=== PATIENT | male | born 1955 | race Caucasian/White ===

== ENCOUNTER → 2018-10-07 | Outpatient (REF) | payer MEDICARE, BC ==
[~2018-10-07] MED LIST: ASP81; AUG875 PO; LOR5; OXYC1TAB54 GT; OXYC1TAB54 PO; PER PO; SIM10
[2018-10-07 10:27] LABS: PLATELET COUNT, AUTOMATED 277 K/uL (150-450)
== END ==
PROVIDERS: ATTEND Nurse Practitioner Family
DX: N39.0 Urinary tract infection, site not specified (principal)
CPT/HCPCS: 85025; G0103; 82040; 82247; 82310; 82374; 82435; 82565; 82947; 84075; 84132; 84153; 84155; 84295; 84450; 84460; 84520

== ENCOUNTER → 2018-10-11 | Outpatient (CLI) | payer MEDICARE, BC ==
[~2018-10-11] MED LIST changes: +NITR-105 PO; +TAMS0.4C25 PO
== END ==
LOC: LAB 09:21
PROVIDERS: ATTEND Urology
DX: N39.0 Urinary tract infection, site not specified (principal)
CPT/HCPCS: 81001

== ENCOUNTER → 2018-10-20 | Outpatient (CLI) | payer MEDICARE, BC ==
[~2018-10-20] MED LIST changes: +IOPAMIDOL 76% 150 ML INFUS BTL 150 ML ONE
--- NOTE | 2018-10-20 10:51 | RADIOLOGY IMAGING REPORT ---
FACILITY: [facility] PATIENT NAME: Alexander Wolfe : 1955 MR: [id number] V: [id number] EXAM DATE: ORDERING PHYSICIAN: TASNEEM SHERMAN TECHNOLOGIST: Location: [facility] [place] Patient: Alexander Wolfe : 1955 Visit/Account:[id number] Date of Sevice: 10/20/2018 CT ABDOMEN PELVIS W & W/O CONTRAST HISTORY: gross hematuria TECHNIQUE: Axial images acquired through the abdomen/pelvis both with and without IV contrast.. Delon nal and sagittal reformatting also performed.Dose Lowering Technique One of the following dose optimization techniques was utilized in the performance of this exam: Autom ated exposure control; adjustment of the mA and/or kV according to the patient's size; or use of an i terative reconstruction technique. Specific details can be referenced in the facility's radiology C T exam operational policy. CONTRAST: 75 mL Isovue-370 COMPARISON: None. FINDINGS: Visualized lung bases: There mild dependent changes in the lower lobes Hepatobiliary: There is cholelithiasis. Common bile duct is mildly prominent at 8 mm. There is add itional hyperdense material in the gallbladder fundus could represent sludge or small stones versus s mall mass Spleen: Negative. Adrenals: Negative. Pancreas: Negative. Kidneys ureters and bladder: There is no evidence of urolithiasis, hydronephrosis or hydroureter. Th ere is a 5 mm round hypoattenuating lesion in the upper pole of the right kidney which may represent a cyst although is too small to characterize by CT. The bladder is not ideally evaluated due to exte nsive streak artifacts the pelvis from bilateral hip arthroplasties . There appears be mild irregul ar thickening the anterior bladder wall. A 1.4 cm cystic structure projects just left of the bladder and may represent a diverticulum Genitalia: Coarse calcifications are identified within the prostate GI: There is diverticulosis throughout the left-sided colon although no CT evidence of acute diverti culitis. The appendix is visualized and does not appear inflamed. Vessels/spaces/nodes: There are minimal atherosclerotic calcifications in the abdominal aorta Bones/soft tissues: There are artifacts from bilateral hip arthroplasties. There are spondylotic henna nges in the thoracal lumbar spine and postsurgical changes at L3-4 from posterior lumbar interbody fu samantha Additional findings: None pertinent. IMPRESSION: Cholelithiasis with mild prominence of the common bile duct at 8 mm. There is additional hyperdense material within the gallbladder fundus which could represent sludge, stones versus small mass. This could be further evaluated with ultrasound No evidence of urolithiasis, hydronephrosis or hydroureter. 5. Nominal round hypoattenuating lesion upper pole the right kidney is too small to characterize by CT. The bladder is not ideally evaluated due to extensive streak artifacts from bilateral hip arthroplast ies. There appears to be mild irregular thickening of the anterior bladder wall. A 1.4 centers cyst ic structure projects just to the left of the bladder and may represent a diverticulum. Left-sided colonic diverticulosis although no CT evidence of acute diverticulitis Chronic changes as described Report Dictated By: Glory Anderson MD at 10/20/2018 10:34 AM Report E-Signed By: Glory Anderson MD at 10/20/2018 10:46 AM ZULMAN:AMICIVEdin
== END ==
LOC: CT 00:08
PROVIDERS: ATTEND Urology
DX: K80.20 Calculus of gallbladder without cholecystitis without obstruction (principal); Z96.643 Presence of artificial hip joint, bilateral; K57.30 Diverticulosis of large intestine without perforation or abscess without bleeding
CPT/HCPCS: 36415; 74178; 82565; Q9967

== ENCOUNTER 2018-10-27 02:21 | Day surgery (SDC) | payer MEDICARE, BC ==
[~2018-10-27] VITALS: Ht 188 cm; Wt 108.0 kg
[~2018-10-27 02:21] MED LIST changes: +FAMOTIDINE 20 MG TAB PO ONE; -IOPAMIDOL 76% 150 ML INFUS BTL 150 ML ONE
[2018-10-27] MEDS ORDERED: FAMOTIDINE 20 MG TAB ONE (06:03)
[2018-10-27] MEDS ORDERED: NORMOSOL R SOLN(*) 1000 ML BAG 1,000 ML IV PRN ×2 (06:05→06:45)
[2018-10-27] MEDS ORDERED: LEVOFLOXACIN/D5W*500 MG/100 ML 100 ML IVPB ONE (06:05)
[2018-10-27] MEDS ORDERED: mitoMYcin 20 MG VIAL 40 MG in WATER STERILE FOR INJ 50 ML VL 40 ML IR ONE (06:05)
[2018-10-27 06:25] VITALS: BP 145/97
[2018-10-27] MEDS ORDERED: LIDOCAINE/SOD BICARB 8.4% SYR ID ONE (06:45)
[2018-10-27] MEDS ORDERED: MIDAZOLAM 2 MG/2 ML VIAL IVP PRN (06:45)
[2018-10-27] MEDS ORDERED: fentaNYL CITR 100 MCG/2 ML AMP ONE ×3 (07:10→09:30)
[2018-10-27] MEDS ORDERED: KETAMINE HCL-NS 50 MG/5 ML SYR ONE (07:10)
[2018-10-27] MEDS ORDERED: PROPOFOL EMUL(*) 10MG/ML 20 ML 20 ML ONE (07:11)
[2018-10-27] MEDS ORDERED: LIDOCAINE MPF 1% 5 ML VIAL ONE (07:11)
[2018-10-27] MEDS ORDERED: DEXAMETHASONE SOD PHOS 10MG/ML ONE (07:11)
[2018-10-27] MEDS ORDERED: ONDANSETRON 4 MG/2 ML VIAL ONE (07:11)
[2018-10-27] MEDS ORDERED: BELLADONNA ALK/OPIUM 60MG SUPP PR ONE (08:15)
[2018-10-27 09:45] VITALS: BP 136/87
[2018-10-27 10:00] VITALS: BP 142/90
[2018-10-27 10:15] VITALS: BP 132/84
[2018-10-27] MEDS ORDERED: OXYBUTYNIN CHL XL 5 MG TABCR PO SCH (10:19)
--- NOTE | 2018-10-27 10:19 | Urology Discharge Summary ---
Discharge Summary Reason for Hosp/Final Diag: (1) Bladder tumor Status: Acute Departure Weight (Pounds): 238 Condition: Improved Discharge: Home Discharge Instructions Home Meds Discontinued Reported Medications Tamsulosin Hcl (FLOMAX) Unknown Strength Cap.er.24h, PO, CAP 10/11/18 Nitrofurantoin Monohyd/M-Cryst (MACROBID 100 MG CAPSULE) Unknown Strength Capsule, PO, CAPSULE 10/11/18 Aspirin (Childrens Chewable Aspirin) 81 Mg Chew 12/15/11 Simvastatin (Zocor) 10 Mg Tab 12/15/11 Special Instructions: Expect to have a frequent urge to urinate and perhaps see blood in the urine. You may actually get pain in your left side from the operation. Please call the office tomorrow to schedule an appointment for Wednesday to have the catheter removed. Call me for any problems or concerns [phone] Venous Thromboembolism Antithrombotics Is Pt On Any Antithrombotics?: No Prophylaxis Tx Contraindicated Pharmacological Contraindicati: Surgical Contraindication TASNEEM SHERMAN MD Oct 27, 2018 10:19
[2018-10-27 10:38] VITALS: BP 132/84
[2018-10-27] MEDS ORDERED: OXYB15TA14 PO (10:41)
[2018-10-27] MEDS ORDERED: OXYC-865 PO (10:41)
[2018-10-27 11:26] VITALS: BP 136/87
--- NOTE | 2018-10-27 13:18 | OPERATIVE REPORT 1 ---
EVENT DATE: October 27, 2018 SURGEON: Frederick Jimenez MD ANESTHESIOLOGIST: Xander Fong MD ANESTHESIA: well digger: None. PREOPERATIVE DIAGNOSIS Medium bladder tumor. POSTOPERATIVE DIAGNOSIS Medium bladder tumor. PROCEDURE PERFORMED Transurethral resection of medium bladder tumor, instillation of Mitomycin-C. DESCRIPTION OF PROCEDURE The patient was brought to the operating room and after the adequate induction of general anesthesia, he was placed in the relaxed dorsal lithotomy position. The genitalia were scrubbed, prepped and draped in the sterile fashion and the bladder examined with a rigid cystoscope. There was a small amount of clot in the dependent portion of the bladder that was irrigated free and careful examination of the entire urothelium demonstrated one papillary appearing tumor, overlying the left ureteral orifice, approximately 3 cm in greatest dimension. No other urothelial abnormalities were seen in the bladder or prostatic urethra. Using the resectoscope sheath, I was able to resect the tumor in two components. The bulk of the tumor was sent as bladder tumor and then the base of the tumor resected into muscularis and sent as a second tumor labeled base of tumor. Once this was accomplished, cauterization of the peripheral mucosa took place. I looked for the left ureteral orifice but could not find it reliably in the resection bed. The bladder was then irrigated with 1 liter of water and a 20-Maltese Evans catheter passed into the bladder. 40 mg of Mitomycin-C were then instilled into the bladder and the catheter clamped and the Mitomycin allowed to dwell for a total of one hour. The patient prior to this, however, was aroused from anesthesia and transported to the PACU in stable condition. RICHARD
[2018-11-01] MEDS ORDERED: SULF-198 PO (16:49)
== END 2018-10-27 09:45 | disposition home or self-care (01) ==
LOC: OR 02:21
PROVIDERS: ATTEND Urology
DX: C67.9 Malignant neoplasm of bladder, unspecified (principal); Z86.718 Personal history of other venous thrombosis and embolism; R31.0 Gross hematuria
CPT/HCPCS: 51720; 52235; 88305; 94667; A4338; A9270; J1100; J1956; J2001; J2405; J2704; J3010; J3490; J9280

== ENCOUNTER 2019-03-23 02:57 | Day surgery (SDC) | payer MEDICARE, BC ==
[~2019-03-23] VITALS: Ht 190.5 cm; Wt 104.3 kg
[~2019-03-23 02:57] MED LIST changes: -FAMOTIDINE 20 MG TAB PO ONE; +OXYB15TA14 PO; +OXYC-865 PO; +SULF-198 PO
[2019-03-23] MEDS ORDERED: LIDOCAINE MPF 1% 5 ML VIAL ONE (08:56)
[2019-03-23] MEDS ORDERED: PROPOFOL EMUL(*) 10MG/ML 20 ML 40 ML ONE (08:56)
[2019-03-23 10:00] VITALS: BP 138/90
[2019-03-23] MEDS ORDERED: NORMOSOL R SOLN(*) 1000 ML BAG 1,000 ML IV PRN (11:00)
[2019-03-23] MEDS ORDERED: LIDOCAINE/SOD BICARB 8.4% SYR ID ONE (11:00)
[2019-03-23 11:33] VITALS: BP 100/68
[2019-03-23 11:58] VITALS: BP 109/71
--- NOTE | 2019-03-23 12:00 | NUR ---
VSS. NO CONCERNS. PT. AWAKE. WANTING PO INTAKE
[2019-03-23 12:14] VITALS: BP 123/80
[2019-03-23 12:15] VITALS: BP 115/78
== END 2019-03-23 12:43 | disposition home or self-care (01) ==
LOC: OR 02:57
PROVIDERS: ATTEND Internal Medicine Gastroenterology
DX: Z12.11 Encounter for screening for malignant neoplasm of colon (principal); K57.30 Diverticulosis of large intestine without perforation or abscess without bleeding; K64.9 Unspecified hemorrhoids
CPT/HCPCS: 00812; G0121; J2001; J2704